=== PATIENT | female | born 1980 | race Caucasian/White ===

== ENCOUNTER 2018-02-24 09:24 | Day surgery (SDC) | payer BC ==
[2018-02-22 12:04] LABS: BASOPHILS % (AUTO) 0.3 % (0-1); EOSINOPHILS # (AUTO) 0.1 X10'3 (0-0.9); EOSINOPHILS % (AUTO) 1.4 % (0-6); LYMPHOCYTES # (AUTO) 1.6 X10'3 (1.1-4.8); MEAN CORPUSCULAR HEMOGLOBIN 27.6 PG (27.0-31.0); MEAN CORPUSCULAR HGB CONC 33.9 % (33.0-36.5); MEAN CORPUSCULAR VOLUME 81.3 FL (78-98); MEAN PLATELET VOLUME 8.2 FL (7.4-10.4); MONOCYTES # (AUTO) 0.5 X10'3 (0-0.9); MONOCYTES % (AUTO) 5.7 % (2-12); NEUTROPHILS # (AUTO) 6.4 X10'3 (1.8-7.7); NEUTROPHILS % (AUTO) 73.6 % (42-75); PRE OP HEMATOCRIT 36.8 % (35.0-45.0); PRE OP HEMOGLOBIN 12.5 g/dL (12.0-16.0); PRE OP PLATELET COUNT 395 X10'3 (140-440); RED BLOOD COUNT 4.52 X10'6 (4.20-5.60); RED CELL DISTRIBUTION WIDTH 15.3 % (11.5-14.5)
[2018-02-22 12:11] LABS: CLARITY,URINE Clear (Clear); COLOR,URINE Yellow (Yellow); GLUCOSE, URINE Negative (Neg); KETONES,URINE Negative (Neg); LEUKOCYTE ESTERASE ,URINE Negative (Neg); NITRITES, URINE Negative (Neg); OCCULT BLOOD,URINE Negative (Neg); PROTEIN,URINE Negative (Neg); UROBILINOGEN,URINE 0.2 E.U/dL (0.2-1.0)
[2018-02-22 12:15] LABS: UA COLLECTION TYPE CLN CATCH MIDSTREAM
[2018-02-22 12:15] LABS: HCG SERUM QL NEGATIVE
[2018-02-22 12:27] LABS: ALBUMIN/GLOBULIN RATIO 1.1 (1.1-1.5); ALKALINE PHOSPHATASE 76 IU/L (46-116); BLOOD UREA NITROGEN 15 MG/DL (7-18); BUN/CREATININE RATIO 19.5 (6.6-38.0); CHLORIDE 103 MMOL/L (99-107); CREATININE 0.77 MG/DL (0.40-0.90); PRE OP ALT 20 U/L (30-65); PRE OP ANION GAP 7 (8-16); PRE OP AST 12 U/L (10-37); PRE OP BILIRUB, TOTAL 0.5 MG/DL (0.0-1.0); PRE OP GLUCOSE 90 MG/DL (70-104); PRE OP POTASSIUM 3.7 MMOL/L (3.4-5.1); PRE OP SODIUM 139 MMOL/L (135-145); TOTAL CARBON DIOXIDE 29.3 MMOL/L (24-32); TOTAL PROTEIN 7.8 G/DL (6.4-8.2); eGFR 84 ML/MIN
[~2018-02-24] VITALS: Ht 167.6 cm; Wt 75.3 kg
[2018-02-24] VITALS (13 sets, daily range): BP systolic 119–146; BP diastolic 58–84
[~2018-02-24 09:24] MED LIST: NO HOME MEDS; ceFOXitin 2 GM ADDvantage bag 100 ML IV ONE; famotidine 20mg tablet PO ONE; meperidine/PF 25mg/ml syringe IV PRN; morphine 4 MG/ML inj SYRINge IV PRN; ondansetron/PF 4mg/2ml inj IV PRN; proCHLORperazine 10 MG/2 ml inj IV PRN; ringers solution, lacted 1,000 ML IV SCH
[2018-02-24] MEDS ORDERED: LIDOcaine 1% (10mg/ml) 2ml vial ONE (09:49)
[2018-02-24] MEDS ORDERED: BUPIVAcaine/PF 2.5mg/ml (0.25%) 10ml vial ONE (11:51)
[2018-02-24] MEDS ORDERED: scopolamine 1.5mg patch.TD72 TD ONE (12:00)
[2018-02-24] MEDS ORDERED: acetaminophen 1,000mg/100ml IV 100 ML IV ONE (12:05)
[2018-02-24] MEDS ORDERED: midazolam 2 mg/2 ml injection ONE (12:06)
[2018-02-24] MEDS ORDERED: ondansetron/PF 4mg/2ml inj ONE (12:07)
[2018-02-24] MEDS ORDERED: LIDOcaine 2% (20mg/ml) 5ml vial ONE (12:07)
[2018-02-24] MEDS ORDERED: ketorolac trometh. 30mg/ml inj. ONE (12:07)
[2018-02-24] MEDS ORDERED: meperidine/PF 50mg/ml syringe ONE (12:07)
[2018-02-24] MEDS ORDERED: propofol inj 20 ML IV ONE (12:07)
[2018-02-24] MEDS ORDERED: dexamethasone sod phosphate 4mg/ml inj. ONE (12:07)
[2018-02-24] MEDS ORDERED: sevoflurane 250ml liquid IH ONE (12:41)
[2018-02-24] MEDS: meperidine/PF 25mg/ml syringe IV PRN ×2 (14:20→14:33)
== END 2018-02-24 15:35 | disposition home or self-care (01) ==
LOC: PAS 09:24
PROVIDERS: ATTEND Obstetrics & Gynecology Obstetrics
DX: Z30.2 Encounter for sterilization (principal); E04.9 Nontoxic goiter, unspecified; Z72.89 Other problems related to lifestyle; Z79.1 Long term (current) use of non-steroidal anti-inflammatories (NSAID); Z79.891 Long term (current) use of opiate analgesic; Z98.890 Other specified postprocedural states; Z79.899 Other long term (current) drug therapy
CPT/HCPCS: 36415; 58671; 76536; 80053; 81003; 84443; 84703; 85025; 86885; 86900; 86901; A4264; J0131; J0694; J1100; J1885; J2001; J2175; J2250; J2405; J2704; J3490; J7120; A7000

== ENCOUNTER 2019-09-28 05:46 | Day surgery (SDC) | payer BC, MEDICAID ==
[2019-09-19 12:56] LABS: CLARITY,URINE CLOUDY (Clear); COLOR,URINE STRAW (Yellow); GLUCOSE, URINE NEGATIVE (Neg); KETONES,URINE NEGATIVE (Neg); LEUKOCYTE ESTERASE ,URINE NEGATIVE (Neg); NITRITES, URINE NEGATIVE (Neg); OCCULT BLOOD,URINE NEGATIVE (Neg); PH,URINE 7.5 (4.8-8.0); PROTEIN,URINE NEGATIVE (Neg); UROBILINOGEN,URINE 0.2 E.U/dL (0.2-1.0)
[2019-09-19 12:57] LABS: BASOPHILS # (AUTO) 0.1 X10'3 (0-0.2); BASOPHILS % (AUTO) 0.8 % (0-1); EOSINOPHILS % (AUTO) 0.5 % (0-6); LYMPHOCYTES # (AUTO) 1.8 X10'3 (1.1-4.8); LYMPHOCYTES % (AUTO) 25.3 % (21-51); MEAN CORPUSCULAR HEMOGLOBIN 29.3 PG (27.0-31.0); MEAN CORPUSCULAR HGB CONC 33.6 g/dL (33.0-36.5); MEAN PLATELET VOLUME 8.2 FL (7.4-10.4); MONOCYTES # (AUTO) 0.6 X10'3 (0-0.9); MONOCYTES % (AUTO) 8.4 % (2-12); NEUTROPHILS # (AUTO) 4.6 X10'3 (1.8-7.7); PRE OP HEMATOCRIT 37.6 % (35.0-45.0); PRE OP HEMOGLOBIN 12.6 g/dL (12.0-16.0); PRE OP PLATELET COUNT 437 X10'3 (140-440); RED BLOOD COUNT 4.32 X10'6 (4.20-5.60); RED CELL DISTRIBUTION WIDTH 13.7 % (11.5-14.5)
[2019-09-19 13:02] LABS: UA COLLECTION TYPE CLN CATCH MIDSTREAM
[2019-09-19 13:04] LABS: ALBUMIN 3.7 G/DL (3.4-5.0); ALKALINE PHOSPHATASE 70 IU/L (46-116); BLOOD UREA NITROGEN 15 MG/DL (7-18); BUN/CREATININE RATIO 20.5 (6.6-38.0); CALCIUM 8.9 MG/DL (8.5-10.1); CHLORIDE 106 MMOL/L (99-107); CREATININE 0.73 MG/DL (0.40-0.90); PRE OP ALT 23 U/L (30-65); PRE OP ANION GAP 7 (8-16); PRE OP AST 16 U/L (10-37); PRE OP BILIRUB, TOTAL 0.2 MG/DL (0.0-1.0); PRE OP GLUCOSE 89 MG/DL (70-104); PRE OP POTASSIUM 3.6 MMOL/L (3.4-5.1); PRE OP SODIUM 142 MMOL/L (135-145); TOTAL CARBON DIOXIDE 29.2 MMOL/L (24-32); TOTAL PROTEIN 7.3 G/DL (6.4-8.2); eGFR 88 ML/MIN
[2019-09-19 13:07] LABS: BACTERIA,URINE FEW /HPF (Neg); MUCUS STRANDS NONE SEEN /LPF (Neg); RBC,URINE NONE SEEN /HPF (0-2); SQUAMOUS EPITHELIAL CELL,UR FEW /LPF (FEW); WBC,URINE 0-4 /HPF (0-4)
[2019-09-19 13:50] LABS: HCG SERUM QL NEGATIVE
[2019-09-28] VITALS (21 sets, daily range): BP systolic 98–119; BP diastolic 40–86
[~2019-09-28] VITALS: Ht 167.6 cm; Wt 72.1 kg
[~2019-09-28 05:46] MED LIST changes: +BIOT1CAP3 PO; +DOCU100C40 PO; +MULT-1085 PO; -NO HOME MEDS; +OMEG-79 PO; +PHEN105C47 PO; +VALA500T PO; +[UNRECOGNIZED DRUG - OTHER] PO; -meperidine/PF 25mg/ml syringe IV PRN; -morphine 4 MG/ML inj SYRINge IV PRN; -ondansetron/PF 4mg/2ml inj IV PRN; -proCHLORperazine 10 MG/2 ml inj IV PRN; -ringers solution, lacted 1,000 ML IV SCH; +scopolamine 1.5mg patch.TD72 TD ONE
[2019-09-28] MEDS ORDERED: LIDOcaine 1% (10mg/ml) 2ml vial ONE (06:12)
[2019-09-28] MEDS: ringers solution, lacted 1,000 ML IV SCH ×4 (06:21→19:41)
[2019-09-28] MEDS ORDERED: epiNEPHrine 1 mg/ml inj ONE (06:49)
[2019-09-28] MEDS ORDERED: clindamycin phosphate 40gm vag cream ONE (06:49)
[2019-09-28] MEDS ORDERED: vasoPRESSIN 20 units/ml inj. ONE (06:50)
[2019-09-28] MEDS ORDERED: neomy sulf/polymyxin B sulf. GU irrigation 1ml amp IR ONE (06:50)
[2019-09-28] MEDS ORDERED: sevoflurane 250ml liquid IH ONE (07:14)
[2019-09-28] MEDS ORDERED: acetaminophen 1000 MG/100ml vial IV ONE (07:14)
[2019-09-28] MEDS ORDERED: aprepitant 40mg capsule PO ONE (07:15)
[2019-09-28] MEDS ORDERED: midazolam 2 mg/2 ml injection ONE (07:23)
[2019-09-28] MEDS ORDERED: fentaNYL /PF 50mcg/ml 5ml ampule ONE (07:23)
[2019-09-28] MEDS ORDERED: rocuronium 10mg/ml inj IV ONE (07:48)
[2019-09-28] MEDS ORDERED: LIDOcaine 2% (20mg/ml) 5ml vial ONE (07:48)
[2019-09-28] MEDS ORDERED: propofol inj 20 ML IV ONE (07:48)
[2019-09-28] MEDS ORDERED: ringers solution, lacted 1,000 ML IV SCH (08:03)
[2019-09-28] MEDS ORDERED: meperidine/PF 25mg/ml syringe IV PRN ×2 (08:05)
[2019-09-28] MEDS ORDERED: ondansetron/PF 4mg/2ml inj IV PRN ×2 (08:05→10:00)
[2019-09-28] MEDS: BUPIVAcaine/PF 2.5 mg/ml (0.25%) 30ml vial ONE ×2 (08:05→08:06)
[2019-09-28] MEDS ORDERED: proCHLORperazine 10 MG/2 ml inj IV PRN (08:05)
[2019-09-28] MEDS ORDERED: morphine 2 MG/ML inj. syringe IV PRN (08:05)
[2019-09-28] MEDS ORDERED: ondansetron/PF 4mg/2ml inj ONE (08:17)
[2019-09-28] MEDS ORDERED: dexamethasone sod phosphate 4mg/ml inj. ONE (08:18)
[2019-09-28] MEDS ORDERED: ketorolac trometh. 30mg/ml inj. ONE (09:58)
[2019-09-28] MEDS ORDERED: fluoroscein sod 10% (100mg/ml) 5ml vial ONE (09:58)
[2019-09-28] MEDS ORDERED: neostigmine methylsulfate 1 MG/ML 10ml vial ONE (09:58)
[2019-09-28] MEDS ORDERED: glycopyrrolate 0.2mg/ml inj ONE (09:58)
[2019-09-28] MEDS ORDERED: metoclopramide 5 mg/ml inj IV PRN (10:00)
[2019-09-28] MEDS ORDERED: magnesium hydroxide 30ml (MOM) UD suspension PO PRN (10:00)
[2019-09-28] MEDS ORDERED: LORazepam 1 MG tablet PO PRN (10:00)
[2019-09-28] MEDS ORDERED: temazepam 15mg capsule PO PRN (10:00)
[2019-09-28] MEDS ORDERED: LORazepam 2 mg/ml vial IV PRN (10:00)
[2019-09-28] MEDS ORDERED: normal saline 500ml IV soln 500 ML IV PRN (10:00)
[2019-09-28] MEDS ORDERED: diphenhydrAMINE 50 mg/ml inj IV PRN (10:00)
[2019-09-28] MEDS ORDERED: HYDROcodone/acetaminophen 10/325mg tab PO PRN (10:00)
--- NOTE | 2019-09-28 10:08 | NUR ---
Received from OR via surgical bed, accompanied by Anesthesiologist FEROZ and report given by Anesthesiolgist. Pt responsive saying "it hurts so much", pain meds requested by MD. All VS WNL O2 at 10L, lap sites open to air CDI, no drainage, js pad with minimal drainage present, wilson cath with bright yellow urine present, SCDs on. 20G IV to left forearm, LR IVF running 100cc/hr.
[2019-09-28] MEDS: meperidine/PF 25mg/ml syringe IV PRN ×3 (10:12→10:47)
[2019-09-28] MEDS: morphine 4 MG/ML inj SYRINge IV PRN ×2 (10:21→11:51)
--- NOTE | 2019-09-28 11:08 | NUR ---
Called in to Dr Humphreys's operating room to make him aware that patient has had some bleeding, about a dinner plate size on a blue chux but decreasing, that pt been very painful, what meds have been given, and current VS, no decrease in BP. I stated that I would like to monitor her further in the recovery room rather than send her to the floor and asked if he had any further orders. He states okay to keep for further monitoring, no changes in orders.
--- NOTE | 2019-09-28 11:23 | NUR ---
Called report to MILAGROS Harrington on surgical floor.
--- NOTE | 2019-09-28 12:08 | NUR ---
Report called to receiving nurse. Transferred via surgical bed. Belongings sent with patient and at bedside. Special Issues communicated to receiving nurse MILAGROS Harrington. Pt taken to room 347A chart at bedside, BLL call light within reach and first set of post-op VS WNL. Bleeding significantly decreased. Silver dollar size blood present to third chux in the last 30 minutes. Will relay to Dr Humphreys that bleeding stopped and VS remain WNL.
--- NOTE | 2019-09-28 12:30 | NUR ---
Patient in room [facility]. I have received report from Deepika LINARES in recovery and had the opportunity to ask questions and assume patient care.
[2019-09-28] MEDS: simethicone 80mg chew tab PO SCH ×2 (12:41→20:35)
[2019-09-28] MEDS: ketorolac trometh. 30mg/ml inj. IV PRN ×2 (12:41→19:11)
[2019-09-28] MEDS: HYDROcodone/acetaminophen 10/325mg tab PO PRN ×2 (16:34→20:35)
--- NOTE | 2019-09-28 18:35 | NUR ---
Problems reprioritized. Patient report given, questions answered & plan of care reviewed with Charleen Molina
--- NOTE | 2019-09-28 19:30 | NUR ---
Patient in room [facility]. I have received report from MILAGROS DOMINGUEZ and had the opportunity to ask questions and assume patient care.
[2019-09-28] MEDS: docusate sod 100mg capsule PO SCH (20:35)
[2019-09-29] VITALS: BP 96/57
[2019-09-29] MEDS: HYDROcodone/acetaminophen 10/325mg tab PO PRN ×3 (01:03→10:16)
[2019-09-29] MEDS: ringers solution, lacted 1,000 ML IV SCH (01:57)
[2019-09-29] MEDS: ketorolac trometh. 30mg/ml inj. IV PRN ×2 (04:28→13:03)
[2019-09-29 05:08] LABS: BASOPHILS % (AUTO) 0.4 % (0-1); EOSINOPHILS % (AUTO) 0.2 % (0-6); HEMATOCRIT 31.1 % (35.0-45.0); HEMOGLOBIN 10.4 g/dl (12.0-16.0); LYMPHOCYTES # (AUTO) 0.8 X10'3 (1.1-4.8); LYMPHOCYTES % (AUTO) 11.6 % (21-51); MEAN CORPUSCULAR HEMOGLOBIN 29.1 PG (27.0-31.0); MEAN CORPUSCULAR HGB CONC 33.5 g/dL (33.0-36.5); MEAN CORPUSCULAR VOLUME 86.8 FL (78-98); MEAN PLATELET VOLUME 8.1 FL (7.4-10.4); MONOCYTES # (AUTO) 0.6 X10'3 (0-0.9); MONOCYTES % (AUTO) 8.3 % (2-12); NEUTROPHILS # (AUTO) 5.7 X10'3 (1.8-7.7); NEUTROPHILS % (AUTO) 79.5 % (42-75); PLATELET COUNT 327 X10'3 (140-440); RED BLOOD COUNT 3.59 X10'6 (4.20-5.60); RED CELL DISTRIBUTION WIDTH 13.4 % (11.5-14.5); WHITE BLOOD COUNT 7.2 X10'3 (4.5-11.0)
[2019-09-29 05:23] LABS: ANION GAP 5 (8-16); BLOOD UREA NITROGEN 7 MG/DL (7-18); BUN/CREATININE RATIO 9.6 (6.6-38.0); CALCIUM 8.4 MG/DL (8.5-10.1); CHLORIDE 108 MMOL/L (99-107); CREATININE 0.73 MG/DL (0.40-0.90); GLUCOSE 86 MG/DL (70-104); SODIUM 141 MMOL/L (135-145); TOTAL CARBON DIOXIDE 27.9 MMOL/L (24-32); eGFR 88 ML/MIN
--- NOTE | 2019-09-29 06:30 | NUR ---
Patient in room . I have received report from lalo Washington and had the opportunity to ask questions and assume patient care.
--- NOTE | 2019-09-29 06:39 | NUR ---
Problems reprioritized. Patient report given, questions answered & plan of care reviewed with MILAGROS DOMINGUEZ.
[2019-09-29] MEDS: simethicone 80mg chew tab PO SCH ×2 (07:57→13:02)
[2019-09-29] MEDS: docusate sod 100mg capsule PO SCH (07:58)
[2019-09-29 08:00] VITALS: BP 87/45
[2019-09-29] MEDS ORDERED: enoxaparin 40mg/0.4ml syringe SQ SCH (08:00)
--- NOTE | 2019-09-29 09:45 | NUR ---
Dr Humphreys notified that pt has a light vaginal bleeding but tolerating activity and food well. Also, aware that Pt's BP drops to 80's with a regular HR of 70's after [place] is given. said it was OK and he was going to DC her home soon.
[2019-09-29 11:00] VITALS: BP 89/49
[2019-09-29] MEDS ORDERED: ONDA8TAB6 PO (14:13)
--- NOTE | 2019-09-29 15:43 | NUR ---
Pt DC to home, A & O and in no apparent pain. Pt's medications eFaxed to [facility] in [place]. All other meds were given and filled two weeks ago per Dr. Humphreys's instructions. Pt Agreed. Pt and understand and verbalize all DC instructions and the importance of following up with Dr. Humphreys. Pt's belongings were collected and packed by . pt carried out bags with her as she is being wheeled out to the lobby. Pt's will pick her up to take her home.
--- NOTE | 2019-09-29 15:51 | NUR ---
Pt is ambulating about 6 laps this morning. She did not wanted her SCD's on. Addendum: 09/29/19 at 1552 by Juany Parks RN Amended: Links added.
== END 2019-09-29 15:39 | disposition home or self-care (01) ==
LOC: PAS 05:46 → SUR 3N 10:01 → PAS 09-29 15:39
PROVIDERS: ATTEND Obstetrics & Gynecology Obstetrics
DX: N81.89 Other female genital prolapse (principal); N92.1 Excessive and frequent menstruation with irregular cycle; N72 Inflammatory disease of cervix uteri; N83.8 Other noninflammatory disorders of ovary, fallopian tube and broad ligament
CPT/HCPCS: 36415; 57260; 57283; 58552; 71046; 80048; 80053; 81001; 82948; 84703; 85025; 86885; 86900; 86901; 93005; J0131; J0171; J0694; J1100; J1885; J2001; J2175; J2250; J2270; J2405; J2704; J2710; J3010; J3490; J7120; J8501; A4314; A4355; A4618; A7000; G0378; J1650